=== PATIENT | female | born 1975 | race Caucasian/White ===

== ENCOUNTER → 2021-02-05 09:55 | Outpatient (CLI) | payer OTHER, SELFPAY ==
--- NOTE | 2021-02-05 10:00 | DI.US.S_ITS ---
PROCEDURE: US PELVIC COMPLETE INDICATIONS: MENORRHAGIA TECHNIQUE: Real-time scanning was performed of the pelvic organs, with image documentation. Additional endovaginal scanning was necessary due to incomplete visualization of the adnexal and endometrial structures by transabdominal scanning. COMPARISON: [facility], US, PELVIS SONO TRANSVAGINAL (PNL), 09/23/2011, 14:41. FINDINGS: Uterus: Uterus is normal in size at 5.5 x 4.4 x 7.9 cm. The endometrium measures 8.3 mm in combined thickness. Ovaries: Normal bilaterally measuring 3.3 x 2.1 x 2.0 cm on the right and 3.0 x 2.9 x 1.8 cm on the left. Other: No pathologic free abdominal or pelvic fluid. Mildly prominent asymmetric right greater than left pelvic veins. This is a nonspecific finding. IMPRESSION: Normal appearing ovaries and uterus. Asymmetric mild prominence of right-sided pelvic veins when compared to those on the left. No suspicion for presence of ovarian torsion. Dictated by: Ceasar Mayen M.D. on 02/05/2021 at 12:44 Approved by: Ceasar Mayen M.D. on 02/05/2021 at 12:47
== END ==
PROVIDERS: Referring Provider Obstetrics & Gynecology; Visit Provider Obstetrics & Gynecology
DX: N92.0 Excessive and frequent menstruation with regular cycle (principal)
CPT/HCPCS: 76830; 76856

== ENCOUNTER 2023-10-09 07:37 | Day surgery (SDC) | payer OTHER, SELFPAY ==
[2023-09-29 14:26] VITALS: BMI 31.4
[2023-10-09] VITALS (20 sets, daily range): BP systolic 98–124; BP diastolic 56–85; PULSE 58–88; RESP 12–17; TEMP 36.3–37.2; O2SAT 96–100; BMI 31.4; BMI 33.0
--- NOTE | 2023-10-09 | PATH_ITS ---
[facility] Accession Number: [id number] No. of containers..01 Tissue . 01 Material submitted: . uterus - UTERUS,CERVIX,BILATERAL FALLOPIAN TUBES . 01 Diagnosis: UTERUS, CERVIX, AND BILATERAL FALLOPIAN TUBES, HYSTERECTOMY AND BILATERAL SALPINGECTDOMY: Cervix with no significant pathologic alterations; no dysplasia or malignancy. Secretory endometrium; no endometrioid intraepithelial neoplasia and no malignancy. Adenomyosis. Complete cross sections of fimbriated bilateral fallopian tubes with benign paratubal cysts. [facility] 10/14/20234 Local . 01 Electronically signed: . Brandy Velasquez MD, Pathologist NPI- [id number] . 01 Gross description: . Received in formalin with two identifiers and uterus, cervix, bilateral fallopian tubes, is an intact uterus (136 grams, 10.2 cm superior to inferior, 6.3 cm medial to lateral, 4.4 cm anterior to posterior), with attached cervix (4.0 x 3.1 cm), attached left fallopian tube (6.9 x 0.6 cm), and detached right fallopian tube (6.1 x 0.9 cm), with no additional adnexa. . The ectocervix is pink-dunbar, smooth, and glistening with a patulous os measuring 0.9 cm in diameter. The serosa is dunbar and smooth with no evidence of hemorrhage or adhesion identified. The anterior paracervical margin is inked blue while the posterior paracervical margin is inked black. . The endocervical canal has dunbar herringbone mucosa and measures 3.0 cm in length with cysts with clear gelatinous material measuring up to 0.4 cm in greatest dimension. The endometrial cavity measures 3.7 cm from cornu to cornu, and 5.1 cm in length with pink-dunbar lush endometrium that averages 0.3 cm thick with no lesions identified. The myometrium is dunbar and trabecular measuring up to 1.6 cm in maximum thickness with no lesions identified. . Both tubes have violaceous smooth serosa and the left tube has a pedunculated cyst measuring 1.6 cm in greatest dimension filled with dunbar serous fluid. The lumen are stellate and unremarkable. . Box Toe Maker sections are submitted as follows: A1: Anterior cervix. A2: Posterior cervix. A3: Anterior full thickness section. A4: Posterior full thickness section. A5: Left fallopian tube to include one-half of bisected fimbriae and cross-sections. A6: Right fallpian tube to include one-half of bisected fimbriae and cross-sections. ([id number]) /NATHALY 10/10/2023 2359 Local . 01 Pathologist provided ICD-10: N80.00, N92.0 . 01 CPT . 665250 Specimen Comment: A courtesy copy of this report has been sent to [phone] Performed at: 01 [facility] [address] [place] [address], [place], [place] [id number] MD Jabari Stovall MD Phone: [phone]
[2023-10-09] MEDS: LACTATED RINGERS 1,000 ML 42 ML IV ×2 (08:07→10:25)
--- NOTE | 2023-10-09 08:53 | PM.PREOP ---
Pre-operative Note COVID-19 COVID-19 status: Not tested Interval Note History & Physical reviewed/Exam performed by Physician: Yes Changes to H&P: No
[2023-10-09] MEDS: ACETAMINOPHEN 325 MG TABLET 975 MG PO (09:16)
[2023-10-09] MEDS: SCOPOLAMINE 1 PATCH TOP (09:16)
[2023-10-09] MEDS: CEFAZOLIN 2 GM/100 ML PREMIX 100 ML IV (09:29)
--- NOTE | 2023-10-09 09:54 | SUR.OPER ---
Lithotomy on padded OR bed. [place] Pad Positioner under torso. Head on pillow, arms padded and tucked at sides. Legs secured in padded yellow fins stirrups.
[2023-10-09] MEDS: BUPIVACAINE 0.5% (PF) 30 ML, EPINEPHrine 0.15 MG INJ (10:11)
[2023-10-09] MEDS: ROPIVACAINE 0.2% PF 2 MG/ML 10ML AMP 20 ML INJ (10:54)
--- NOTE | 2023-10-09 11:40 | PM.GYNOP.1 ---
Operative Date/Time/Diagnoses Date of procedure: 10/09/23 Time of procedure: 09:30 Pre-op diagnosis: Menorrhagia Severe dysmenorrhea Post-op diagnosis: other (Same as above; minimal pelvic endometriosis) Procedure & Clinicians Procedure: Procedures Operation Date: 10/09/23 09:15 Actual Procedure Side Surgeon p Laparoscopic Total Hysterectomy with bilateral salpingectomy Devin Carter MD Indications: Socorro returned in July 2023 for follow-up of her longstanding menorrhagia with severe dysmenorrhea. In the 2-1/2 years since I last saw her, her periods have only worsened insofar as menstrual flow, and severity of pain. She has several days of cramping prior to the onset of each menses which last 7 days and are associated with passage of large clots and incapacitating dysmenorrhea. Despite use of maxi pads and tampons, the patient frequently has overflows especially at night and at least 2 or 3 days out of every month she is virtually incapacitated by pain and bleeding. Following each menses, she has several days of residual pain and cramping in the pelvis. Patient's last menstrual period actually began earlier today and she expects the severe bleeding to start in the next few hours. Patient had a LEEP procedure about 4 years ago and Paps since that time have been negative but she does not recall when she had her last Pap performed. She has never had endometrial sampling performed. Her most recent pelvic ultrasound performed on 12/04/2022 shows the uterus to be anteverted and normal in size measuring 8.7 cm x 4.3 cm x 5.7 cm. The myometrium is described as homogeneous. The endometrial stripe measures 8 mm in combined thickness. The right ovary measures 2.7 x 1.8 x 2.0 cm with a calculated ovarian volume of 4.9 cc. The left ovary measures 3.3 x 1.9 x 2.6 cm with a calculated ovarian volume of 8.4 cc. Both ovaries have normal sonographic appearance. No adnexal masses or pathologic free abdominal/pelvic fluid are noted. Subsequent to her evaluation in July 2023, the patient underwent Pap and endometrial sampling which again showed atypical glandular cells with negative HPV and negative endometrial biopsy results. We discussed potential causes and methods of evaluation/treatment for her severe menorrhagia and severe dysmenorrhea. While she is open to insertion of a Mirena IUD or performance of endometrial ablation, she is very concerned that neither can guarantee her that her symptoms of heavy bleeding with flooding as well as her incapacitating dysmenorrhea. Instead, the patient would like to proceed to hysterectomy with ovarian preservation and I support her decision. She presents now for her scheduled surgery. Surgeon: Devin Carter Energy Conservation Representative: María Rivas Anesthesia Type: General Operative Notes Findings: Uterus is normal in size and shape. Fallopian tubes and ovaries both appeared normal. There are 3 or 4 superficial endometrial implants immediately adjacent to the insertion of the uterosacral ligament at posterior aspect of the cervix. These were destroyed judicious use bipolar current. There were no other abnormalities in the posterior cul-de-sac. The left ovary had an involuting corpus luteum and the right ovary as a small dominant follicle noted but no abnormalities in the right adnexa seen. The remainder of the abdomen pelvis were normal to laparoscopic inspection. Closure Type: primary Specimen(s): left tube, right tube and uterus Applied: catheter Estimated blood loss (mL): 200 Blood products transfused: none Procedure in detail: With the patient in modified dorsal lithotomy position preparations were made by prepping and draping the patient in usual manner for vaginal surgery and insertion of Carmona catheter. A pre-surgical time-out was then taken in accordance with [facility] policy. A bivalve speculum was then placed in the vagina and the cervix visualized. The anterior lip of the cervix was then grasped with a single-tooth tenaculum. A PDS suture was placed through the lip cervix and through the VC are cup. The uterus was sounded to 8 cm, the endocervical canal dilated slightly, and a VCare uterine manipulator with a large colpotomy cup was placed. The umbilicus was then infiltrated with 0.5% Marcaine with epinephrine. A 1 cm umbilical incision was made transversely and a Veress needle was used to insufflate the abdominal cavity with carbon dioxide. Once the abdomen was appropriately insufflated, a 5 mm trocar and sleeve were then placed through the umbilical incision. The scope was placed through the trocar and the initial assessment of the intra-abdominal contents carried out. A 2nd and 3rd 5 mm port was then placed 1st in the right mid quadrant from then the left mid quadrant by infiltration of the skin and subcutaneous tissues, a 1 cm transverse incision and insertion of the 5 mm bladeless port. Using a 3 puncture technique, the abdomen and pelvis were inspected laparoscopy and photographically documented. Uterus is mobilized with the VCare manipulator and attention turned to the left adnexa. The distal tube was then grasped and the fimbria varicose divided after coagulation with the PowerSeal device. The dissection was then carried out toward the cornua and the fallopian tube amputated. The tube was removed through a 5 mm port and dissection was then carried down using the PowerSeal device so as to divide the utero-ovarian ligament and the round ligament with blunt and sharp dissection of the broad down to the level of the uterine artery. The uterine artery was then skeletonized after development of a bladder flap, coagulated, and divided. Once hemostasis was assured on the left side attention was turned to the right and the tube, utero-ovarian ligament, round ligament, and broad ligament were dissected in a fashion exactly the same as it had been on the left. The right uterine artery was then visualized after skeletonization and coagulated and divided. The uterus was seen to pamela after coagulation of both your arteries and the cup was identified through the vaginal muscularis at its insertion with the body of the cervix. Circumferential excision of the vaginal cup was accomplished without difficulty using monopolar current and the uterus mobilized. The uterus was then removed through the vagina and the vaginal cuff closed [id number] with a series of 0 Vicryl [id number] stitches. Hemostasis was excellent, the abdomen was re-insufflated, and the pelvis inspected laparoscopically. The pelvis was inspected for any abnormality or bleeding, and the ureters were each seen to be peristalsing freely. With complete hemostasis assured, the pneumoperitoneum was vented and the ports removed. All of the 5 mm ports were then closed with 4-0 Monocryl on the skin using inverted interrupted sutures. Skin glue was placed and after the glue was dried, an appropriate dressing was applied. The case was then terminated, the patient awakened, and then transferred to PACU after having tolerated the procedure well. Complications: none Post-operative Condition: stable Disposition: PACU Plan for aftercare: Recovery in ambulatory surgery in discharge home later today if pain is under control and she is tolerating oral intake well.
[2023-10-09] MEDS: HYDROMORPHONE 1 MG INJ IV ×5 (11:48→17:34)
[2023-10-09] MEDS: BENZOCAINE/MENTHOL 1 LOZ PKT 1 EACH PO (11:50)
[2023-10-09] MEDS: OXYCODONE IR 5 MG TABLET PO ×2 (12:08→15:48)
[2023-10-09] MEDS: ACETAMINOPHEN 325 MG TABLET 650 MG PO ×2 (13:44→17:34)
[2023-10-09] MEDS: LACTATED RINGERS 1,000 ML 100 ML IV ×2 (13:45→22:55)
[2023-10-09] MEDS: ONDANSETRON 4 MG/2 ML INJ IV ×2 (17:33→20:11)
[2023-10-09] MEDS: KETOROLAC 30 MG/ML VIAL IV (20:10)
[2023-10-10] MEDS: ACETAMINOPHEN 325 MG TABLET 650 MG PO ×2 (00:23→05:10)
[2023-10-10] MEDS: KETOROLAC 30 MG/ML VIAL IV ×2 (03:29→08:21)
[2023-10-10 04:51] LABS: Add Manual Diff / Slide Review NO; Basophils Absolute Auto 100 /uL (0-100); Basophils Percent Auto 0.4 % (0-2); Eosinophils Absolute Auto 100 /uL (0-450); Eosinophils Percent Auto 0.4 % (2-4); Hematocrit 36.2 % (36-46); Hemoglobin 12.3 g/dL (12.0-16.0); Lymphocytes Absolute Auto 1800 /uL (1100-4500); Lymphocytes Percent Auto 12.4 % (25-40); Mean Corpuscular HGB Conc 33.9 % (30-36); Mean Corpuscular Hemoglobin 29.2 PG (26-34); Mean Corpuscular Volume 86.3 fL (80-100); Monocytes Absolute Auto 900 /uL (0-900); Monocytes Percent Auto 6.1 % (3-14); Neutrophils Absolute Auto 11400 /uL (1500-7000); Neutrophils Percent Auto 80.7 % (50-75); Platelet Count 308 X10^3/uL (150-400); Red Cell Distribution Width 12.8 % (11.6-14.8); White Blood Cell Count 14.1 X10^3/uL (4.5-11.0)
[2023-10-10] MEDS: OXYCODONE IR 5 MG TABLET PO (05:10)
[2023-10-10] MEDS: ONDANSETRON 4 MG/2 ML INJ IV (08:21)
[2023-10-10] MEDS: buPROPion XL 150 MG TAB 300 MG PO (08:21)
--- NOTE | 2023-10-10 09:30 | PM.DS.1 ---
History of Present Illness History of Present Illness Date Patient Seen: 10/10/23 Time Patient Seen: 09:30 Chief complaint: Menorrhagia, severe dysmenorrhea Narrative: Socorro returned in July 2023 for follow-up of her longstanding menorrhagia with severe dysmenorrhea. In the 2-1/2 years since I last saw her, her periods have only worsened insofar as menstrual flow, and severity of pain. She has several days of cramping prior to the onset of each menses which last 7 days and are associated with passage of large clots and incapacitating dysmenorrhea. Despite use of maxi pads and tampons, the patient frequently has overflows especially at night and at least 2 or 3 days out of every month she is virtually incapacitated by pain and bleeding. Following each menses, she has several days of residual pain and cramping in the pelvis. Patient's last menstrual period actually began earlier today and she expects the severe bleeding to start in the next few hours. Patient had a LEEP procedure about 4 years ago and Paps since that time have been negative but she does not recall when she had her last Pap performed. She has never had endometrial sampling performed. Her most recent pelvic ultrasound performed on 12/04/2022 shows the uterus to be anteverted and normal in size measuring 8.7 cm x 4.3 cm x 5.7 cm. The myometrium is described as homogeneous. The endometrial stripe measures 8 mm in combined thickness. The right ovary measures 2.7 x 1.8 x 2.0 cm with a calculated ovarian volume of 4.9 cc. The left ovary measures 3.3 x 1.9 x 2.6 cm with a calculated ovarian volume of 8.4 cc. Both ovaries have normal sonographic appearance. No adnexal masses or pathologic free abdominal/pelvic fluid are noted. Subsequent to her evaluation in July 2023, the patient underwent Pap and endometrial sampling which again showed atypical glandular cells with negative HPV and negative endometrial biopsy results. We discussed potential causes and methods of evaluation/treatment for her severe menorrhagia and severe dysmenorrhea. While she is open to insertion of a Mirena IUD or performance of endometrial ablation, she is very concerned that neither can guarantee her that her symptoms of heavy bleeding with flooding as well as her incapacitating dysmenorrhea. Instead, the patient would like to proceed to hysterectomy with ovarian preservation and I support her decision. She presents now for her scheduled surgery. Discharge Providers Provider Date of admission: 10/09/2023 Discharge Date: 10/10/23 Primary care physician: Reji Monroe MD Discharge provider: Devin Carter MD Summary Hospital Course Discharge Diagnosis: Intractable menorrhagia Severe dysmenorrhea Minimal pelvic peritoneal endometriosis Status post total laparoscopic hysterectomy with bilateral salpingectomy and fulguration of endometrial implants Hospital Course: On the morning of 10/09/2023, the patient was admitted for total laparoscopic hysterectomy with bilateral salpingectomy. Full details of that uneventful procedure are well summarized on my operative note of that date. Following surgery the patient has done extremely well with prompt return of bowel and bladder function, she is ambulating independently, tolerating regular diet, and her pain is well controlled with oral pain medications. She will be discharged at this time to home in an afebrile normotensive condition after counseling regarding precautionary symptoms, limitations of activity, medications, and plans for follow-up which will be in 2 weeks. Discharge medication will include resumption of naproxen and bupropion but discontinuation of tranexamic acid as her menorrhagia has been addressed with hysterectomy. In addition she will be discharged with oxycodone 5 mg every 4-6 hours as needed for pain, dispense 20 with no refills, and Cipro 500 mg p.o. b.i.d. x5 days for UTI prophylaxis following catheterization. Status at Discharge Cognitive/behavioral status at discharge: oriented Functional status at discharge: independent ambulation Overall status at discharge: patient is progressing back to baseline Time Spent with Patient Time spent: Less than 30 minutes Exam Vital Signs (past 8 hours): Oxygen Delivery Method Room Air Oxygen Flow Rate 0 Const General: cooperative and comfortable Nutritional Appearance: average body habitus Orientation: alert and oriented x3 HENMT Head: normal to inspection, atraumatic and abrasion Ears: hearing grossly normal bilaterally Face and sinus: face symmetric Eyes General: appearance normal, both eyes and all related structures Conjunctivae: conjunctivae normal Sclera: sclerae normal EOM: EOM intact bilaterally Neck Neck: normal visual inspection Resp Effort & Inspection: normal respiratory effort and able to speak in complete sentences Auscultation: clear to auscultation bilaterally Cardio Rate: regular rate Rhythm: regular rhythm Heart Sounds: S1 normal, S2 normal and no murmurs GI Inspection: normal to inspection and incision (Surgical dressings clean and dry) Palpation: soft, no hepatosplenomegaly and tender (Mild, diffuse postsurgical tenderness) Auscultation: hypoactive bowel sounds External Female Exam: other (No significant bleeding noted) Extrem General: no calf tenderness Psych Appearance: grossly normal Mental Status: mental status grossly normal Speech and Movement: speech and movement normal Mood: congruent mood Affect: normal affect Attitude: cooperative Thought Process: normal Thought Content: normal Judgment: judgment good Objective Labs 10/10/23 04:27 Labs: Laboratory Results - last 24 hr 10/10/23 04:27 WBC 14.1 H RBC 4.20 Hgb 12.3 Hct 36.2 MCV 86.3 MCH 29.2 MCHC 33.9 RDW 12.8 Plt Count 308 Neut % (Auto) 80.7 H Lymph % (Auto) 12.4 L [place] % (Auto) 6.1 Eos % (Auto) 0.4 L Baso % (Auto) 0.4 Neut # (Auto) 88972 H Lymph # (Auto) 1800 [place] # (Auto) 900 Eos # (Auto) 100 Baso # (Auto) 100 PFSH Medical History (Updated 09/29/23 @ 14:34 by Alexia Crawford RN) Vertigo PMDD (premenstrual dysphoric disorder) Mood swings Menorrhagia with regular cycle Surgical History (Updated 09/29/23 @ 14:34 by Alexia Crawford RN) Hx of colonoscopy History of surgery Social History household members: spouse Smoking Status: Former smoker alcohol intake: current Discharge Assessment & Plan Assessment and Plan Assessment: Intractable menorrhagia Severe dysmenorrhea Minimal pelvic peritoneal endometriosis Status post total laparoscopic hysterectomy with bilateral salpingectomy and fulguration of endometrial implants Plan of Treatment: Routine postoperative care with follow-up planned for 2 weeks after her surgery Discharge Plan Discharge Plan Patient Disposition: Home Provider Discharge Comment: Please review the written instructions you received when were discharged from appointment scheduled weeks and I look forward to seeing you then. If however in the any issues concerns questions please through the office phone at [phone], or via the patient portal. Discharge orders & Medications Discharge Orders: Discharge (Order); Ordered 10/10/23 Ordered By: Devin Carter Prescriptions: New oxycodone 5 mg Tablet 5 mg PO Q4HR PRN (Reason: Pain, Moderate (4-6)) Qty: 20 0RF ciprofloxacin HCl [Cipro] 500 mg tablet 500 mg PO BID 5 Days Qty: 10 0RF Continued bupropion HCl 300 mg tablet extended release 24 hr 300 mg PO QAM naproxen 500 mg tablet 500 mg PO Q8H PRN (Reason: pain) Qty: 30 12RF Rx Instructions: For best effect, start medication 1-2 days prior to expected onset of period Discontinued tranexamic acid 650 mg tablet 1,300 mg PO TID Qty: 30 12RF Rx Instructions: Start medication with the start of each period Medication counseling provided by Pharmacist: No Follow up/Referrals: Reji Monroe MD [Primary Care Provider] - Devin Carter MD [Physician] - Diet/Activity/Treatments Diet: Diet as Tolerated Activity: As tolerated Other treatments: Vbdr-ojv-rqmxwab Tylenol and/or ibuprofen may be used additional pain relief. Wcus-mxn-zlrdphd stool softeners and/or MiraLax may be used as needed for constipation. Skin/Wound/Dressing Care Report to your healthcare provider any signs of infection, such as:: chills, fever, increased pain, unusual drainage and unusual redness Dressing: Dressings should be removed morning 10/11/2023 Visit Report/Discharge Packet Instructions: DI for Hysterectomy, DI for Laparoscopy, DI for Prescription Opioid Use, Ciprofloxacin Print Language: Welsh Discharge Data Primary Care Provider: Reji Monroe Attending Provider: Devin Carter Quality VTE Deep Vein Thrombosis/Pulmonary Embolism Present on Admission: No
[2023-10-10] MEDS: HYDROMORPHONE 1 MG INJ IV (10:12)
--- NOTE | 2023-10-10 10:25 | CM.DANOTE ---
Initial DCP Assessment Visit Note Reviewed EMR and team rounds for status updates. Met with pt and spouse at bedside to introduce self and role, pt was found to be alert/oriented, and dressed in preparation for home discharge. Her spouse will be transporting her home. No DCP needs were identified at this time for community support. She will plan to f/u postoperatively with Dr. Carter. Payor: [facility] Attending: Dr. Devin Carter Pt is a 47 year-old F post-op day 1 from a laparoscropic total hysterectomy and bilateral salpingectomy. Pt has a PMH of excessive and frequent menstruation which has worsened over the last 2-years. She had shared that her menstruation periods are painful, with cramping and passage of large clots, which for at least 3-days out of the month leaves her incapacitated with pain and bleeding. She is doing well postoperatively, no further DCP needs per pt/spouse. Discharge Planning/Care Management CM Discharge Assessment Start: 10/10/23 10:23 Freq: Status: Active Protocol: Document 10/10/23 10:24 DPL (Rec: 10/10/23 10:25 DPL [id number]) Discharge Planning Assessment Assigned Paint Pourer DANN Coreas Advance Directives? No History Provided By Patient,Medical Record Has Patient been admitted in last 30 No days? Prior Living Arrangements House Household Members spouse Type of transporation used prior to Drives own vehicle admit Independent with ADL's Yes Is patient alert and oriented? Yes Barriers to Discharge No Discharge Plan Home Referrals Initiated None needed Whiteboard Updated in Patient Room with Yes name and ext. # of Paint Pourer Review Status In Process Please Provide Date Initial DC 10/10/23 Assessment Was Performed Pre-Anesthesia Assessment Start: 09/29/23 14:26 Freq: Status: Active Protocol: Document 09/29/23 14:26 CAB (Rec: 09/29/23 14:34 CAB [id number]) Pre-Anesthesia Assessment Patient Information Reviewed Via Chart Review Primary Care Provider Reji Monroe Seen Specialist in Last 12 Months Yes Specialist Seen Crusher Primary Language Wolof Customs Consultant Required No Height 165.1 cm Weight 85.729 kg Body Mass Index (BMI) 31.4 Barriers to Learning None Hx Anesthesia Reactions No Anesthesia Review Requested No Behavioral Health Rn No Smoking Status Former smoker how long ago did patient quit smoking 2007 Pain Present Pain Reported History of Falling (Recent or History of No ) Patient is completely paralyzed or No completely immobile Mental Status Oriented to own ability Hx Sleep Apnea No Currently Taking a Beta Malissa No Anti-Coagulant Therapy No Cardiac Testing No Hx Pacemaker/ICD No Pacemaker Rep Required? No Cardiac Clearance Received No Urinary Catheter Present No Hx Urinary Self Catheterization No Diabetes No Patient No Lactating No Marital Status Lives With spouse Patient Discharge Plan Description Return Home
== END 2023-10-10 10:30 | disposition home or self-care (01) ==
LOC: OR 07:38 → AC 07:40
PROVIDERS: PCP Family Medicine; Referring Provider Obstetrics & Gynecology; Visit Provider Obstetrics & Gynecology
PROC: 0UT94ZZ Resection of Uterus, Percutaneous Endoscopic Approach (ICD-10-PCS; CPT 58571; principal; 2023-10-09 09:15)
DX: N92.0 Excessive and frequent menstruation with regular cycle (principal); N94.6 Dysmenorrhea, unspecified; N83.12 Corpus luteum cyst of left ovary; N80.03 Adenomyosis of the uterus; N83.8 Other noninflammatory disorders of ovary, fallopian tube and broad ligament
CPT/HCPCS: 58571; 36415; 85025; J0171; J0690; J1100; J1170; J1885; J2250; J2405; J2704; J2795; J3010

== ENCOUNTER → 2024-01-08 18:17 | Outpatient (CLI) | payer OTHER, SELFPAY ==
[2023-10-09 13:09] VITALS: BMI 33.0
--- NOTE | 2024-01-08 18:18 | DI.MRI.S_ITS ---
PROCEDURE: MR PELVIS WO/W CON INDICATIONS: Pelvic pain/dyspareunia post-hysterectomy TECHNIQUE: Coronal HASTE, sagittal breath-hold T2 FSE; axial T1 FSE with and without fat saturation through the pelvis. Optional long- and short-axis uterine nonbreath-hold T2 FSE through the uterus. Sagittal or axial dynamic VIBE during administration of contrast. Post-contrast axial or coronal VIBE/2-D FLASH with fat saturation from the iliac crests to the symphysis. Optional diffusion weighted imaging and ADC may be performed. COMPARISON: [facility], US, US PELVIC COMPLETE WITH TRANSVAGINAL, 10/13/2022, 8:13. FINDINGS: Image quality: Excellent. Uterus: Status post hysterectomy. Vaginal cuff is unremarkable. Adnexa: Both ovaries are normal in size, without suspicious cystic or solid lesions. Urinary system: Bladder wall is normal in thickness. Distal ureters are non distended. Urethra appears normal in morphology. Nodes and vessels: No pelvic or inguinal adenopathy by size criteria. Iliac vessels are normal in size. Bowel and peritoneum: No pathologic free pelvic fluid. Inferior colon and small bowel loops are normal in caliber. Soft tissues: No inguinal hernias. No findings of pelvic floor incompetence in the absence of provocation. Bones: Marrow demonstrates normal overall signal. IMPRESSION: Postsurgical changes from hysterectomy. No acute inflammatory changes or fluid collection is seen in the pelvis. No definite source for pelvic pain identified. Approved by: Scooby Nguyễn M.D. on 01/08/2024 at 20:03
== END ==
PROVIDERS: PCP Family Medicine; Referring Provider Obstetrics & Gynecology; Visit Provider Obstetrics & Gynecology
DX: R10.2 Pelvic and perineal pain (principal); Z90.710 Acquired absence of both cervix and uterus
CPT/HCPCS: 72197; A9579

== ENCOUNTER 2024-01-15 12:49 | Day surgery (SDC) | payer OTHER, SELFPAY ==
[2023-10-09 13:09] VITALS: BMI 33.0
[2024-01-13 08:03] VITALS: BMI 28.9
[2024-01-15] VITALS (11 sets, daily range): BP systolic 109–135; BP diastolic 52–85; PULSE 62–80; RESP 14–25; TEMP 36.2–36.9; O2SAT 96–100; BMI 28.9
--- NOTE | 2024-01-15 | PATH_ITS ---
[facility] Accession Number: [id number] No. of containers..01 Tissue . 01 Material submitted: . PERITONEAL - PERITONEAL . 01 Diagnosis: PERITONEUM, BIOPSY: Small fragment of fibroadipose tissue with focal mild chronic inflammation. Negative for atypia or malignancy. Negative for endometriosis, see comment. MRV 01/19/2024 1536 Local . 01 Comment: Multiple deeper levels have been examined. Endometrial-type glands or stroma are not seen. . No malignancy is identified. . Clinical and radiologic correlation is recommended. . 01 Electronically signed: . Hector Noriega MD, Pathologist NPI- [id number] . 01 Gross description: . Received in formalin with two patient identifiers and peritoneal biopsy, is a dunbar to yellow fragment measuring 0.5 x 0.3 x 0.4 cm with one edge inked blue and the opposite edge surface inked yellow. Bisected and submitted in cassette A1. ([id number]) ([id number]) /NATHALY 01/19/2024 1444 Local . 01 Pathologist provided ICD-10: R10.2, Z90.710 . 01 CPT . 621522 Specimen Comment: A courtesy copy of this report has been sent to [phone] Performed at: [address] [facility] [address], [place], [place] [id number] MD Jabari Stovall MD Phone: [phone]
--- NOTE | 2024-01-15 13:12 | SUR.OPER ---
Lithotomy on padded OR bed, head on pillow. bilateral arms padded and tucked. Legs secured in padded yellow fins stirrups.
[2024-01-15] MEDS: LACTATED RINGERS 1,000 ML 42 ML IV ×2 (13:32→16:05)
--- NOTE | 2024-01-15 13:52 | P.HP_ITS ---
History of Present Illness History of Present Illness Date Patient Seen: 01/15/24 Time Patient Seen: 13:53 Date of Onset of Symptoms: 01/06/24 Chief complaint: PROVIDER SERVICE REPRESENTATIVE Narrative: This 48-year-old female underwent uncomplicated hysterectomy and subsequently developed what she reports as was not infection and then pelvic pain particularly with intercourse which has now progressed to where it is a more constant pain. She has been taking to the operating room by Dr. Carter for exploratory laparoscopy and treatments to alleviate her pain. Dr. Carter has requested that I place lighted ureteral stents to aid in the location of the ureter so that they might not be injured during the procedure. The procedure, risks, alternatives were discussed with the patient questions were answered and she wishes to proceed. Risks to include but not limited to bleeding, infection, injury to surrounding structures, ureteral perforation, need for 1st of the surgery, unexpected in unintended consequences in sequelae, anesthetic complications, need for Carmona catheter, postoperative dysuria frequency urgency which should be short-lived. Patient voices understanding and acceptance of risks and wishes me to proceed. [facility] Medical History (Updated 01/06/24 @ 16:01 by Devin Carter MD) Vertigo PMDD (premenstrual dysphoric disorder) Mood swings Surgical History (Updated 01/13/24 @ 08:07 by Alexia Crawford RN) History of hysterectomy (10/09/23) Hx of colonoscopy History of surgery Social History household members: spouse Smoking Status: Former smoker alcohol intake: current Meds Home Medications and Allergies Home Medications Medication Instructions Recorded Confirmed Type bupropion HCl 300 mg 24 hr tablet, 300 mg PO QAM 08/18/23 01/15/24 History extended release naproxen 500 mg tablet 500 mg PO Q8H PRN pain #30 tabs 08/18/23 01/15/24 Rx semaglutide 0.25 mg or 0.5 mg (2 0.25 mg SUBCUT QWEEK 01/06/24 01/15/24 History mg/3 mL) subcutaneous pen injector Allergies Allergy/AdvReac Type Severity Reaction Status Date / Time Sulfa (Sulfonamide Allergy Intermediate Nausea Verified 01/15/24 13:36 Antibiotics) Exam Vital Signs (past 8 hours): - 01/15/24 13:20 Temperature 98.5 F Pulse Rate 70 Respiratory Rate 18 Blood Pressure 109/76 Pulse Oximetry 100 Oxygen Delivery Method Room Air Oxygen Delivery Method Room Air Narrative Exam Narrative: General: This is an awake, alert, oriented female lying on a gurney who appears in no substantial distress at this point. Lungs: Clear full and equal Cardiovascular exam: Regular rate and rhythm without murmur Abdominal exam: Soft, nontender, without palpable mass or hepatosplenomegaly. Genitourinary exam deferred to cystoscopy. Assessment & Plan Assessment and plan (1) Pelvic pain in female: Status: Acute (2) Vaginal cuff cellulitis: Status: Suspected Plan Assessment and plan: 1. Pelvic pain in female. Dr. Carter plans laparoscopic investigation has requested lighted ureteral stents which will be placed via cystoscopy and removed at the end of the procedure. We will also place a Carmona catheter to facilitate the stent staying in place. 2. Vaginal cuff cellulitis 3. Significant pain during intercourse Time-Based Coding :: [TOTAL MINUTES] spent with patient and on the chart (including review of chart, obtaining history, exam, reviewing outside data, placing orders, documenting exam and treatment plan, and counseling patient) on [DATE].
--- NOTE | 2024-01-15 13:58 | PM.PREOP ---
Pre-operative Note COVID-19 COVID-19 status: Not tested Interval Note History & Physical reviewed/Exam performed by Physician: Yes Changes to H&P: No
--- NOTE | 2024-01-15 13:59 | PM.PREOP ---
Pre-operative Note COVID-19 COVID-19 status: Not tested Interval Note History & Physical reviewed/Exam performed by Physician: Yes Changes to H&P: No
[2024-01-15] MEDS: CEFAZOLIN 2 GM/100 ML PREMIX 100 ML IV (14:11)
[2024-01-15] MEDS: iopamidoL 30 ML VIAL INJ (14:26)
--- NOTE | 2024-01-15 14:50 | PM.OP.1 ---
Procedure & Clinicians Procedure: Cystoscopy with right retrograde pyelogram and bilateral ureteral catheter placement. Carmona catheter placement Same procedure as scheduled: Yes Indications: This is a 48-year-old female who is admitted for gynecologic diagnostic laparoscopy. Her instrumentation supervisor has requested lighted ureteral catheters to aid in the identification and protection of the ureters. Surgeon: Jamal Camargo Click Yes if Unassisted: Yes Anesthesia Type: General Operative Notes Findings: External genitalia normal, vaginal mucosa arpan, l urethral meatus normal, the urethra is normal along its length with normal mucosa. The ureteral orifices in normal position with clear efflux. The bladder mucosa is normal there are no extrinsic mass intrusion into the bladder the outlined of the bladder and contour is normal no inflammatory changes or other abnormalities were noted. At the right retrograde pyelogram which was performed because of seemingly increased resistance in the right ureter this appeared normal with a nondilated collecting system no hydronephrosis no filling defects. The catheters were confirmed to be in good position by fluoroscopy. One in the right collecting system 1 in the left collecting system. The 16 [place] catheter was left in place with the ureteral catheters taped to it. Closure Type: not applicable Specimen(s): none sent Prosthetic devices, grafts, tissues, transplants, or devices: Bilateral lighted ureteral catheters right and left 16 [place] 5 cc Carmona catheter 10 cc in the balloon with the ureteral catheters taped to the catheter. Blood products transfused: none Procedure in detail: Procedure in detail: After informed consent was obtained, the patient was identified brought the operating room where she is placed in supine position on table and anesthesia was induced to maintain. After ensuring an adequate level of anesthesia the patient was transitioned to the lithotomy position where she was prepped, draped and prepared for Transurethral procedure. After prepping, draping, administration of antibiotics, time-out and ensuring an adequate level of anesthesia 22 Kittitian cystoscope was passed through the urethra into the bladder where cystoscopy performed with the ureteral orifices identified the ureteral catheter for the left side was passed up into the collecting system with minimal resistance. On the right side has was passed there was resistance attempt with the wire removed revealed resulted in no decrease in resistance therefore the wire was backed out and a retrograde pyelogram was performed which revealed normal anatomy. This point the catheter had the wire passed up through it and up into the collecting system under fluoroscopic visualization. The catheter was then passed into the renal pelvis and the wire removed. The ureteral catheters were left in place the scope was backed out and the catheter was left in place. The fiberoptic fibers were then passed up the right and left ureteral catheters and left in place. The Carmona catheter was then passed along the catheters through the urethra of the balloon filled with 10 cc of sterile water. The drapes were removed as this happened the adhesive caught the catheter isn't back to mount a bit this was stopped the catheters were once again advanced the drapes removed fluoroscopic visualization was once again obtained have confirmed that the catheters were in appropriate position at this point the catheters were taped to the Carmona to secure them in place. With this done the patient went onto procedure via Dr. Carter. Dr. Carter will remove the Carmona in the catheters at the end of the procedure having been instructed how to do so they should just simply slight out. Disposition will be per Dr. Carter and his procedure will be dictated under separate cover. Complications: none Post-operative Condition: stable Disposition: other (Patient went onto diagnostic laparoscopy per Dr. Carter further disposition will be made my him.)
[2024-01-15] MEDS: BUPIVACAINE 0.5% (PF) 30 ML, EPINEPHrine 0.15 MG INJ (14:52)
[2024-01-15] MEDS: OXYCODONE IR 5 MG TABLET PO ×2 (16:00→16:28)
[2024-01-15] MEDS: HYDROMORPHONE 1 MG INJ IV ×3 (16:00→16:15)
[2024-01-15] MEDS: hydrOXYzine 50 MG/ML INJ 25 MG IM (16:05)
[2024-01-15] MEDS: ONDANSETRON 4 MG/2 ML INJ IV (16:05)
[2024-01-15] MEDS: fentaNYL 100 MCG/2 ML INJ IV ×2 (16:08→16:13)
--- NOTE | 2024-01-15 16:21 | PM.GYNOP.1 ---
Operative Date/Time/Diagnoses Date of procedure: 01/15/24 Time of procedure: 14:30 Pre-op diagnosis: Pelvic pain following hysterectomy Post-op diagnosis: other (ANGELES; extensive postsurgical pelvic adhesions) Procedure & Clinicians Procedure: Procedures Operation Date: 01/15/24 14:00 Actual Procedure Side Surgeon p Laparoscopy, Diagnostic, w/ lysis of adhesions Devin Carter MD s cystoscopy with lighted stent placement Jamal Lowry MD Indications: Socorro is a 48-year-old female who underwent an uneventful total laparoscopic hysterectomy with bilateral salpingectomy in September 2023. She had what was believed to be a mild cuff cellulitis following her surgery successfully treated with antibiotics. Unfortunately once she resumed all normal daily activities she has developed increasing pelvic pain particularly on the left side which is made markedly worse with intercourse but is now essentially constant. Recent pelvic imaging by MR shows: PROCEDURE: MR PELVIS WO/W CON INDICATIONS: Pelvic pain/dyspareunia post-hysterectomy TECHNIQUE: Coronal HASTE, sagittal breath-hold T2 FSE; axial T1 FSE with and without fat saturation through the pelvis. Optional long- and short-axis uterine nonbreath-hold T2 FSE through the uterus. Sagittal or axial dynamic VIBE during administration of contrast. Post-contrast axial or coronal VIBE/2-D FLASH with fat saturation from the iliac crests to the symphysis. Optional diffusion weighted imaging and ADC may be performed. COMPARISON: [facility], US, US PELVIC COMPLETE WITH TRANSVAGINAL, 10/13/2022, 8:13. FINDINGS: Image quality: Excellent. Uterus: Status post hysterectomy. Vaginal cuff is unremarkable. Adnexa: Both ovaries are normal in size, without suspicious cystic or solid lesions. Urinary system: Bladder wall is normal in thickness. Distal ureters are non distended. Urethra appears normal in morphology. Nodes and vessels: No pelvic or inguinal adenopathy by size criteria. Iliac vessels are normal in size. Bowel and peritoneum: No pathologic free pelvic fluid. Inferior colon and small bowel loops are normal in caliber. Soft tissues: No inguinal hernias. No findings of pelvic floor incompetence in the absence of provocation. Bones: Marrow demonstrates normal overall signal. IMPRESSION: Postsurgical changes from hysterectomy. No acute inflammatory changes or fluid collection is seen in the pelvis. No definite source for pelvic pain identified. While the normal MR results are welcome, these results are at odds with her examination on 01/06/2024 which showed exquisite tenderness and a sense of fullness at the left vaginal fornix which duplicated her pain. In addition she had some tenderness over on the right side as well but no palpable abnormality. After discussion with the patient and her regarding options for further evaluation/treatment, she has opted to proceed with diagnostic laparoscopy. Dr. Earl lowry has been asked to place lighted stents in both ureters in the event that extensive sidewall dissection is required and/or dissection of the ureterovesical junction. She presents now for her scheduled surgery. Surgeon: Devin Carter Anesthesia Type: General Operative Notes Findings: The pelvis demonstrates changes consistent with prior hysterectomy. There were filmy and dense adhesions involving the lateral aspect of the sigmoid colon to the sidewall as well as the left ovary which is encased in adhesions but also adherent at the anti-hilar end to the vaginal cuff at the primary site of the patient's pain. The right ovary is uninvolved with the adhesions. The remainder pelvis following extensive lysis of adhesions appears essentially normal to laparoscopic inspection as does the remainder of the abdomen. Closure Type: primary Specimen(s): other (Peritoneal biopsy, right pelvic sidewall) Applied: catheter and other (Bilateral ureteral stents) Estimated blood loss (mL): 20 Blood products transfused: none Procedure in detail: Following the procedure by Dr. Earl Lowry to place lighted stents in each ureter, the patient was prepped and draped for laparoscopy. A second pre-surgical safety time-out was then taken in accordance with [facility] protocols. A sponge stick was inserted in the vagina. The left side of the umbilicus was infiltrated with 0.5% Marcaine with epinephrine and a 5 mm vertical incision was made on the left lower portion of the umbilicus. A very as needed was used to insufflate the abdomen with carbon dioxide and once sufficiently insufflated, 5 mm trocar and sleeve were placed through the umbilical incision. Correct placement was confirmed by laparoscopic visualization. A 2nd and 3rd 5 mm port or placed in the left and right mid quadrants using a technique similar to the umbilicus. Using a 3 puncture technique, the pelvis and abdomen were thoroughly visualized and photographically documented. The sigmoid colon was retracted toward the midline with an atraumatic forceps and sharp as well as blunt dissection was used to take down the adhesions involving the sigmoid to the sidewall in the left ovary. Once the sigmoid had been mobilized it was then freed from the apex of the vaginal cuff using the same technique. Once the vaginal cuff had been completely freed of adhesions to the sigmoid, the left ovary was mobilized and using a combination of sharp as well as blunt dissection, the anti-hilar surface of the ovary was excised from the cuff and completely freed from the sidewall so as to restore it to its natural position. The pelvis was irrigated and thoroughly inspected. Hyperpigmented area on the right pelvic sidewall was excised and submitted as a pathologic specimen to rule out occult endometriosis. A 4 x 8 cm Surgicel was cut into 4 smaller pieces and used to cover the apex of the vaginal cuff down into the posterior cul-de-sac to reduce the risk of subsequent re-initiation. The pelvis and abdomen were inspected once again and with no other abnormalities noted, the procedure was terminated by have any of the pneumoperitoneum and removal of the laparoscopy sleeves. The laparoscopy port incisions were then closed using 4-0 Monocryl with inverted interrupted stitches, skin glue was applied, and appropriate dressings were applied. The patient was then awakened from anesthesia after removal of the ureteral stents, Carmona, and sponge stick from the vagina. She was then transferred to the PACU for a period of observation and recovery after having tolerated the procedure well. Complications: none Post-operative Condition: stable Disposition: PACU Plan for aftercare: Routine postoperative care
[2024-01-15] MEDS: METOCLOPRAMIDE 10 MG/2 ML INJ IV (16:35)
== END 2024-01-15 18:00 | disposition home or self-care (01) ==
PROVIDERS: Urology; PCP Family Medicine; Referring Provider Obstetrics & Gynecology; Visit Provider Obstetrics & Gynecology
PROC: (CPT 49320; principal; 2024-01-15 14:00)
PROC: (CPT 52332; 2024-01-15 14:00)
DX: R10.2 Pelvic and perineal pain (principal); Z90.710 Acquired absence of both cervix and uterus; N76.0 Acute vaginitis
CPT/HCPCS: 49321; 52332; 76000; J0171; J0690; J1100; J1170; J1885; J2250; J2405; J2704; J2765; J3010; J3410; Q9967

== ENCOUNTER 2024-01-19 10:49 | Emergency (ER) | payer OTHER, SELFPAY ==
[2023-10-09 13:09] VITALS: BMI 33.0
[2024-01-19] VITALS (14 sets, daily range): BP systolic 118–144; BP diastolic 67–94; PULSE 64–99; RESP 18–26; TEMP 36.9; O2SAT 97–100; BMI 28.8
[2024-01-19] MEDS: ONDANSETRON 4 MG/2 ML INJ IV (12:58)
[2024-01-19] MEDS: HYDROMORPHONE 0.5 MG INJ IV (12:58)
[2024-01-19 13:01] LABS: Add Manual Diff / Slide Review NO; Basophils Absolute Auto 100 /uL (0-100); Basophils Percent Auto 0.7 % (0-2); Eosinophils Absolute Auto 100 /uL (0-450); Eosinophils Percent Auto 1.6 % (2-4); Hematocrit 41.5 % (36-46); Hemoglobin 14.2 g/dL (12.0-16.0); Lymphocytes Absolute Auto 1400 /uL (1100-4500); Lymphocytes Percent Auto 16.7 % (25-40); Mean Corpuscular HGB Conc 34.1 % (30-36); Mean Corpuscular Hemoglobin 29.6 PG (26-34); Mean Corpuscular Volume 86.6 fL (80-100); Monocytes Absolute Auto 600 /uL (0-900); Monocytes Percent Auto 7.1 % (3-14); Neutrophils Absolute Auto 6000 /uL (1500-7000); Neutrophils Percent Auto 73.9 % (50-75); Platelet Count 327 X10^3/uL (150-400); Red Blood Cell Count 4.79 X10^6/uL (4.0-5.2); Red Cell Distribution Width 13.2 % (11.6-14.8); White Blood Cell Count 8.1 X10^3/uL (4.5-11.0)
[2024-01-19 13:15] LABS: Alanine Aminotransferase 15 IU/L (<35); Albumin 4.1 g/dL (3.5-5.0); Albumin Globulin Ratio 1.4 (1.0-2.8); Alkaline Phosphatase 79 U/L (38-126); Aspartate Aminotransferase 16 IU/L (14-36); BUN Creatinine Ratio 15.7 (6-22); Bilirubin Total 0.4 mg/dL (0.2-1.3); Blood Urea Nitrogen 11 mg/dL (7-17); Calcium 8.5 mg/dL (8.4-10.2); Carbon Dioxide 25 mmol/L (22-32); Chloride 104 mmol/L (98-107); Estimated Glomerular Filt Rate > 60 mL/min (>60); Globulin 2.9 g/dL (1.7-4.1); Glucose 91 mg/dL (70-100); HEMOLYSIS < 15 (0-50); Lipase 52 U/L (23-300); Potassium 4.1 mmol/L (3.4-5.1); Sodium 137 mmol/L (137-145)
[2024-01-19 13:18] LABS: RBC Urine 0-1/HPF (0-5/HPF); Urine Volume 10mL (spun); WBC Urine 1-5/HPF (0-5/HPF)
[2024-01-19 13:19] LABS: Bacteria Urine Few (2-10); Culture Indicated Urine Specimen Cultured; Squamous Epithelial Cell Urine 0-1 /HPF (0-5/HPF)
--- NOTE | 2024-01-19 14:09 | DI.CT.S_ITS ---
PROCEDURE: CT ABDOMEN PELVIS W CON INDICATIONS: s/p hyst w/ complications, pelvic pain, urethra pain TECHNIQUE: After the administration of intravenous contrast, axial sections acquired from the lung bases to the pubic symphysis. Coronal and sagittal reformats were performed. For radiation dose reduction, the following was used: automated exposure control, adjustment of mA and/or kV according to patient size. COMPARISON: None. FINDINGS: Image quality: Diagnostic. Lower Chest: No significant findings. ABDOMEN: Liver: No solid mass. Gallbladder: Gallbladder sludge versus small stones. No wall thickening or pericholecystic edema to suggest acute cholecystitis. Biliary ducts: No biliary dilation. Pancreas: No ductal dilation. Spleen: Size is within normal limits. Adrenal Glands: No adrenal nodules. Kidneys and Ureters: No hydronephrosis. No solid mass. No complex renal cystic lesion which requires follow up. Stomach and Bowel: Normal colonic caliber, without significant wall thickening. Normal appendix. No significant diverticular disease. Peritoneum: Small amount of free air within the abdomen. No fluid collection Ventral Wall: No significant ventral hernia. Subcutaneous gas over the left lower quadrant abdominal wall. Small umbilical hernia containing fat. Abdominal Nodes: No retroperitoneal or mesenteric adenopathy by size criteria. Vessels: Aorta and inferior vena cava are normal in size. PELVIS: Pelvic Organs: Hysterectomy. Bladder: No bladder wall thickening, accounting for underdistention. Pelvic Nodes: No enlarged lymph nodes. Miscellaneous: No inguinal hernias are seen. Bones: No aggressive osseous abnormality. IMPRESSION: Small amount of pneumoperitoneum and trace gas overlying the left lower quadrant abdominal wall. Findings are most likely postoperative in nature. Hysterectomy with mild fat stranding in the surgical bed, presumably postoperative. No infectious or inflammatory process identified otherwise. Dictated by: Homar Pereira M.D. on 01/19/2024 at 14:59 Approved by: Homar Pereira M.D. on 01/19/2024 at 15:07
--- NOTE | 2024-01-19 14:30 | ED_ITS ---
HPI - General Adult General Chief complaint: Urogenital-Female Stated complaint: sx complications from thursday Time Seen by Provider: 01/19/24 13:49 Source: patient, RN notes reviewed and old records reviewed Mode of arrival: Ambulatory Limitations: no limitations History of Present Illness HPI narrative: 48-year-old female who had a total laparoscopic hysterectomy with bilateral salpingectomy on September 2023, developed increasing pelvic pain had pelvic MRI which did not show acute changes and patient went to the OR on 12/24/2023 and was found to have adhesions with the left ovary encased but adherent to the antihypertensive end of the vaginal cuff the primary site of patient's pain right ovary was uninvolved. Patient had lysis of adhesions as well as cystoscopy and ureteroscopy. Since then patient has had some increased pain particularly with urination and at the urethra and started to have left flank pain and then right flank pain over the last several days. No fevers. She would some nausea today but no vomiting. She states this is different than the pain she was having prior to her return for surgery on the 14 of January. Patient states she has been able to urinate. Has had bowel movements. She has been taking ciprofloxacin and Pyridium without any improvement of symptoms over the last several days she has also been taking oxycodone and naproxen for pain. Patient's home medications include semaglutide and bupropion. Reports an allergy to sulfa. No tobacco, alcohol or recreational drugs. Dr. Carter is her front desk representative. Related Data Home Medications Medication Instructions Recorded Confirmed bupropion HCl 300 mg 24 hr tablet, 300 mg PO QAM 08/18/23 01/15/24 extended release semaglutide 0.25 mg or 0.5 mg (2 0.25 mg SUBCUT QWEEK 01/06/24 01/15/24 mg/3 mL) subcutaneous pen injector Previous Rx's Medication Instructions Recorded naproxen 500 mg tablet 500 mg PO Q8H PRN pain #30 tabs 08/18/23 ciprofloxacin HCl 500 mg tablet 500 mg PO BID 5 days #10 tabs 01/15/24 oxycodone 5 mg tablet 5 mg PO Q4H PRN pain #20 tabs 01/15/24 phenazopyridine 200 mg tablet 200 mg PO TID 3 days #10 tabs 01/17/24 (Pyridium) cephalexin 500 mg capsule 500 mg PO Q6H 10 days #40 caps 01/19/24 meloxicam 7.5 mg tablet 7.5 mg PO BID PRN pain #14 tabs 01/19/24 oxycodone 5 mg tablet 5 mg PO QID PRN pain #10 tabs 01/19/24 Allergies Allergy/AdvReac Type Severity Reaction Status Date / Time Sulfa (Sulfonamide Allergy Intermediate Nausea Verified 01/15/24 13:36 Antibiotics) Review of Systems Review of Systems ROS Unobtainable: All systems reviewed & are unremarkable except as noted in HPI and below Patient History Medical History Vertigo PMDD (premenstrual dysphoric disorder) Mood swings Surgical History History of hysterectomy (10/09/23) Hx of colonoscopy History of surgery Social History household members: spouse Smoking Status: Former smoker alcohol intake: current Smoking Status: Former smoker alcohol intake frequency: holidays/special occasions only Substance Use Type: does not use Exam Narrative Exam Narrative: GENERAL: Alert and oriented x three, female in moderate distress. HEENT: Head normocephalic, atraumatic, EOMI, pupils reactive, face symmetric, moist mucous membranes NECK: Supple, full range of motion CARDIOVASCULAR: Regular rate and rhythm without murmurs, rubs or gallops. RESPIRATORY: Breath sounds equal bilaterally, no wheezes rales or rhonchi. ABDOMEN: Soft, generalized tenderness Normoactive bowel sounds all 4 quadrants. No guarding or rebound, rigidity, no mass : Left CVA tenderness greater than right CVA tenderness. EXTREMITIES: Normal range of motion, no clubbing or edema. Neurovascularly intact NEUROLOGICAL: Cranial nerves II through XII grossly intact. Moving all extremities SKIN: Warm, dry, no petechiae, no rashes or lesions. Initial Vital Signs Initial Vital Signs: Vital Signs Temperature 98.4 F 01/19/24 11:32 Pulse Rate 99 H 01/19/24 11:32 Respiratory Rate 26 H 01/19/24 11:32 Blood Pressure 129/94 H 01/19/24 11:32 Pulse Oximetry 97 01/19/24 11:32 Oxygen Delivery Method Room Air 01/19/24 11:32 Course Orders Ordered: ED Orders 01/19/24 12:30 Urine Culture Stat Urine Microscopic Stat 01/19/24 12:43 Complete Blood Count AUTO DIFF Stat Comprehensive Metabolic Panel Stat Lipase Stat 01/19/24 14:09 CT abdomen pelvis w con Stat Discontinued Medications Hydromorphone HCl (Hydromorphone 0.5 Mg Inj) 0.5 mg IV NOW ONE Stop: 01/19/24 12:51 Last Admin: 01/19/24 12:58 Dose: 0.5 mg Documented By: GRACE Sodium Chloride (Normal Saline 0.9%) 1,000 mls @ 1,000 mls/hr IV BOLUS ONE Stop: 01/19/24 15:08 Last Infusion: 01/19/24 16:06 Dose: Infused Documented By: Admin: 01/19/24 14:59 Dose: 1,000 mls/hr Documented By: DIGNA Ceftriaxone Sodium 2,000 mg/ (Sodium Chloride) 100 mls @ 200 mls/hr IV NOW ONE Stop: 01/19/24 14:25 Last Infusion: 01/19/24 15:55 Dose: Infused Documented By: Admin: 01/19/24 14:59 Dose: 200 mls/hr Documented By: DIGNA Ketorolac Tromethamine (Ketorolac 30 Mg/Ml Vial) 15 mg IV NOW ONE Stop: 01/19/24 14:25 Last Admin: 01/19/24 14:57 Dose: 15 mg Documented By: DIGNA Ondansetron HCl (Ondansetron 4 Mg/2 Ml Inj) 4 mg IV NOW PRN PRN Reason: Nausea And Vomiting Last Admin: 01/19/24 12:58 Dose: 4 mg Documented By: GRACE Ondansetron HCl (Ondansetron 4 Mg Odt) 4 mg PO NOW PRN PRN Reason: Nausea And Vomiting Vital Signs Vital signs: Vital Signs - 8 hr 01/19/24 11:32 01/19/24 11:47 01/19/24 11:48 Temperature 98.4 F Pulse Rate 99 H 79 80 Respiratory Rate 26 H Blood Pressure 129/94 H Pulse Oximetry 97 99 100 Oxygen Delivery Method Room Air 01/19/24 11:48 01/19/24 12:00 01/19/24 12:00 Temperature Pulse Rate 82 Respiratory Rate Blood Pressure 123/83 118/79 Pulse Oximetry 99 Oxygen Delivery Method 01/19/24 12:10 01/19/24 12:10 01/19/24 12:30 Temperature Pulse Rate 76 Respiratory Rate Blood Pressure 143/67 H 127/80 Pulse Oximetry 99 Oxygen Delivery Method 01/19/24 12:30 01/19/24 13:00 01/19/24 13:03 Temperature Pulse Rate 81 70 84 Respiratory Rate Blood Pressure Pulse Oximetry 99 100 99 Oxygen Delivery Method 01/19/24 13:03 01/19/24 13:30 01/19/24 13:30 Temperature Pulse Rate 73 Respiratory Rate Blood Pressure 144/94 H 127/85 Pulse Oximetry 97 Oxygen Delivery Method 01/19/24 14:04 01/19/24 14:40 01/19/24 15:00 Temperature Pulse Rate 65 75 64 Respiratory Rate Blood Pressure Pulse Oximetry 97 100 Oxygen Delivery Method 01/19/24 15:30 01/19/24 16:06 Temperature Pulse Rate 71 67 Respiratory Rate 18 Blood Pressure 136/80 Pulse Oximetry 100 100 Oxygen Delivery Method Room Air Medical Decision Making Lab Data 01/19/24 12:43 01/19/24 12:43 Labs: Lab Results 01/19/24 01/19/24 Range/Units 12:30 12:43 WBC 8.1 (4.5-11.0) X10^3/uL RBC 4.79 (4.0-5.2) X10^6/uL Hgb 14.2 (12.0-16.0) g/dL Hct 41.5 (36-46) % MCV 86.6 (80-100) fL MCH 29.6 (26-34) PG MCHC 34.1 (30-36) % RDW 13.2 (11.6-14.8) % Plt Count 327 (150-400) X10^3/uL Neut % (Auto) 73.9 (50-75) % Lymph % (Auto) 16.7 L (25-40) % [place] % (Auto) 7.1 (3-14) % Eos % (Auto) 1.6 L (2-4) % Baso % (Auto) 0.7 (0-2) % Neut # (Auto) 6000 (4892-3856) /uL Lymph # (Auto) 1400 (9448-6569) /uL [place] # (Auto) 600 (0-900) /uL Eos # (Auto) 100 (0-450) /uL Baso # (Auto) 100 (0-100) /uL Sodium 137 (137-145) mmol/L Potassium 4.1 (3.4-5.1) mmol/L Chloride 104 (98-107) mmol/L Carbon Dioxide 25 (22-32) mmol/L BUN 11 (7-17) mg/dL Creatinine 0.70 (0.52-1.04) mg/dL Estimated GFR > 60 (>60) mL/min BUN/Creatinine Ratio 15.7 (6-22) Glucose 91 (70-100) mg/dL Calcium 8.5 (8.4-10.2) mg/dL Total Bilirubin 0.4 (0.2-1.3) mg/dL AST 16 (14-36) IU/L ALT 15 (<35) IU/L Alkaline Phosphatase 79 (38-126) U/L Total Protein 7.0 (6.3-8.2) g/dL Albumin 4.1 (3.5-5.0) g/dL Globulin 2.9 (1.7-4.1) g/dL Albumin/Globulin Ratio 1.4 (1.0-2.8) Lipase 52 (23-300) U/L Urine RBC 0-1/hpf (0-5/HPF) Urine WBC 1-5/hpf (0-5/HPF) Ur Squamous Epith Cells 0-1 /hpf (0-5/HPF) Urine Bacteria Few (2-10) H (None) Ur Culture Indicated? Specimen cultured Vol Urine Centrifuged 10ml (spun) Urine Dip Bedside Urine Glucose Negative Bedside Urine Bilirubin - Negative Bedside Urine Ketone - Negative Urine Specific [place] 1.005 Bedside Urine Occult Blood +++ Bedside Urine pH 7.0 Bedside Urine Protein - Negative Bedside Urine Urobilinogen - Negative Bedside Urine Nitrite - Negative Bedside Urine Leukocytes +/- 15 Esterase Point of care testing: Urine Dip Bedside Urine Glucose Negative Bedside Urine Bilirubin - Negative Bedside Urine Ketone - Negative Urine Specific [place] 1.005 Bedside Urine Occult Blood +++ Bedside Urine pH 7.0 Bedside Urine Protein - Negative Bedside Urine Urobilinogen - Negative Bedside Urine Nitrite - Negative Bedside Urine Leukocytes +/- [address] [facility] Narrative Medical decision making narrative: 48-year-old female with complaint of worsening abdominal pain with new reason pain, dysuria and bilateral flank pain. Patient does appear to be septic. Patient did have a pelvic MRI on 01/08/2024 which showed no acute change, patient had laparoscopic evaluation with Dr. Carter and had lysis of adhesions with her ovary adhesed to the top of the vaginal cuff. Patient has since had dysuria urinary frequency and discomfort that has not increased and gone up into her flank. Labs show white count of 8.1 hemoglobin of 14, platelets of 327 she had a white count of 14 back in September. Electrolytes, renal function LFTs are all appropriate. Urine shows leukocyte esterase bacteria 1 red cell 1-5 white cells 1 squamous, was sent for culture. CT abdomen pelvis shows no acute change at this time. Shows possible infection she has been on ciprofloxacin there is no prior urine culture for comparison. Patient was given a dose of Rocephin here in the department. Discussed with patient we will change her antibiotics continue with the oral pain medication, she can continue with Pyridium for the short term. We will give a new prescription have her stop the ciprofloxacin. Make sure to have her follow up with airflight attendants supervisor in the next several days for recheck. Dr. Carter will be out so I spoke with Dr. Call who is on-call to help facilitate follow-up and reviewed all labs and findings. Reviewed all this with the patient. She feels comfortable with this plan. Discussed should have follow up with the urine culture to make sure that it does grow bacteria if negative she will need further evaluation with Gynecology. She states she is supposed to call to set up follow up with goal in the next couple days. Discussed return precautions all questions answered. Patient states pain adequately controlled at this time. Discharge Plan Departure Patient Disposition: Home Clinical Impression: Pyelonephritis Instructions: DI for Kidney Infection Activity Restrictions/Additional Instructions: I spoke with Dr. Call who is covering for Dr. Carter. Please call the office to make sure you have a follow up appointment in the next several days. Suspect you have pyelonephritis or kidney infection. This can sometimes occur when bacterial infections from the urinary tract move up into the kidneys and can be quite uncomfortable. Please stop the ciprofloxacin and start the new oral antibiotic that you has been prescribed. Take your first dose this evening. You have a urine culture pending if it shows resistance to the antibiotic prescribed he will be contacted to change it. You can take Tylenol up to a 1000 mg every 6 hours as needed for pain and/or meloxicam 1 tablet every 12 hours as needed for pain. Do not take other NSAIDs such as Aleve, ibuprofen or naproxen with this medication. If needed you can take oxycodone 1-2 tablets every 6 hours as needed. This medication can make you sleepy do not drive, perform hazardous activities or make any major decisions while taking it. This medication will make you constipated please take a stool softener once to twice daily until stools are soft and regular. [facility] Please return for fevers new or worsening abdominal back or flank pain, inability to urinate, vomiting, lightheadedness or passing out or other new or concerning changes. Prescriptions: New cephalexin 500 mg capsule 500 mg PO Q6H 10 Days Qty: 40 0RF meloxicam 7.5 mg tablet 7.5 mg PO BID PRN (Reason: pain) Qty: 14 0RF oxycodone 5 mg tablet 5 mg PO QID PRN (Reason: pain) Qty: 10 0RF No Action phenazopyridine [Pyridium] 200 mg tablet 200 mg PO TID 3 Days Qty: 10 2RF semaglutide 0.25 mg or 0.5 mg (2 mg/3 mL) pen injector 0.25 mg SUBCUT QWEEK Rx Instructions: for 4 weeks bupropion HCl 300 mg tablet extended release 24 hr 300 mg PO QAM naproxen 500 mg tablet 500 mg PO Q8H PRN (Reason: pain) Qty: 30 12RF Rx Instructions: For best effect, start medication 1-2 days prior to expected onset of period oxycodone 5 mg tablet 5 mg PO Q4H PRN (Reason: pain) Qty: 20 0RF ciprofloxacin HCl 500 mg tablet 500 mg PO BID 5 Days Qty: 10 0RF Referrals: Reji Monroe MD [Primary Care Provider] - Stand Alone Forms: Patient Portal/API
--- NOTE | 2024-01-19 14:38 | PC.NURSE ---
1400 Patient reports significant reduction in pain after dilaudid. I had her walk to the bathroom again and she stated she was now able to urinate a normal amount. Bladder scan post void is now 0ml.
--- NOTE | 2024-01-19 14:42 | PC.NURSE ---
Patient reports she had a hysterectomy about a month ago which resulted in an infection. She was on two different antibiotics however abdominal pain continued. Two weeks ago they did an abdominal MRI which was negative. On Thursday her surgeon did another laparoscopic surgery to try and determine the source of her continued severe abdominal pain. They then found that her ovary had imbedded itself in my vagina and was surrounded in scar tissue. They removed the ovary and stitched it in place and closed her back up. During this surgery they put fiberoptics up my urethra into both ureters and up to the kidneys so they could light them up and wouldn't cut them during the surgery. She was told that there would be urethral pain after but it is more severe than expected and causing her to have urgency, frequency, and retention. She reports her flanks are now hurting and the pyridium is no longer controlling the pain.
[2024-01-19] MEDS: KETOROLAC 30 MG/ML VIAL 15 MG IV (14:57)
[2024-01-19] MEDS: SODIUM CHLORIDE 0.9% 1,000 ML 1000 ML IV (14:59)
[2024-01-19] MEDS: cefTRIAXone 2,000 MG in SODIUM CHLORIDE 0.9% 100 ML 200 MG IV (14:59)
== END 2024-01-19 16:07 | disposition home or self-care (01) ==
PROVIDERS: Emergency Provider Emergency Medicine; PCP Family Medicine
DX: N12 Tubulo-interstitial nephritis, not specified as acute or chronic (principal)
CPT/HCPCS: 36415; 51798; 74177; 80053; 81003; 81015; 83690; 85025; 87077; 87086; 87186; 96365; 96375; 99284; J0696; J1170; J1885; J2405; Q9967

== ENCOUNTER 2024-01-20 09:16 | Observation (INO) | payer OTHER, SELFPAY ==
[2023-10-09 13:09] VITALS: BMI 33.0
[2024-01-20] VITALS (7 sets, daily range): BP systolic 115–141; BP diastolic 73–98; PULSE 61–81; RESP 14–16; TEMP 36.7–36.9; O2SAT 97–99; BMI 28.8
--- NOTE | 2024-01-20 10:04 | ED.FEMALEGU ---
HPI - Female Genitourinary General Chief complaint: Urogenital-Female Stated complaint: Surgery Thursday, was seen Here Yesterday Time Seen by Provider: 01/20/24 09:54 Source: patient Mode of arrival: Ambulatory History of Present Illness HPI Narrative: Patient seen here yesterday for postoperative pain. She and for pyelonephritis. Patient has CT imaging blood work and urinalysis done. Director Of Home Health Services service was contacted for close follow up but however patient states has intractable pain nausea vomiting and feeling very weak. Patient had antibiotics changed from Cipro to Keflex yesterday as well as her pain medication. Still not feeling better. Please see notes below. History of Present Illness HPI narrative: 48-year-old female who had a total laparoscopic hysterectomy with bilateral salpingectomy on September 2023, developed increasing pelvic pain had pelvic MRI which did not show acute changes and patient went to the OR on 12/24/2023 and was found to have adhesions with the left ovary encased but adherent to the antihypertensive end of the vaginal cuff the primary site of patient's pain right ovary was uninvolved. Patient had lysis of adhesions as well as cystoscopy and ureteroscopy. Since then patient has had some increased pain particularly with urination and at the urethra and started to have left flank pain and then right flank pain over the last several days. No fevers. She would some nausea today but no vomiting. She states this is different than the pain she was having prior to her return for surgery on the 14 of January. Patient states she has been able to urinate. Has had bowel movements. She has been taking ciprofloxacin and Pyridium without any improvement of symptoms over the last several days she has also been taking oxycodone and naproxen for pain. Patient's home medications include semaglutide and bupropion. Reports an allergy to sulfa. No tobacco, alcohol or recreational drugs. Dr. Carter is her sample prep technician. Related Data Home Medications Medication Instructions Recorded Confirmed bupropion HCl 300 mg 24 hr tablet, 300 mg PO QAM 08/18/23 01/20/24 extended release semaglutide 0.25 mg or 0.5 mg (2 0.25 mg SUBCUT QWEEK 01/06/24 01/20/24 mg/3 mL) subcutaneous pen injector Previous Rx's Medication Instructions Recorded cephalexin 500 mg capsule 500 mg PO Q6H 10 days #40 caps 01/19/24 ondansetron 4 mg disintegrating 4 mg PO Q6H PRN nausea and 01/21/24 tablet vomiting #10 tabs oxycodone 5 mg tablet 5 mg PO Q4H PRN pain #30 tabs 01/21/24 phenazopyridine 200 mg tablet 200 mg PO TID #15 tabs 01/21/24 (Pyridium) Allergies Allergy/AdvReac Type Severity Reaction Status Date / Time Sulfa (Sulfonamide Allergy Intermediate Nausea Verified 01/20/24 09:28 Antibiotics) Review of Systems Review of Systems Narrative: GENERAL: negative chills, fatigue, malaise, fever, sweats. HEENT: negative sinus pain, ear pain, sore throat RESPIRATORY: negative dyspnea, cough CARDIOVASCULAR: negative chest pain, palpitations GASTROINTESTINAL: Positive nausea, vomiting, abdominal pain : negative dysuria, frequency, hematuria MUSCULOSKELETAL: negative muscle or bony pain SKIN: negative rash, skin lesions NEUROLOGIC: negative weakness, numbness Patient History Medical History Vertigo PMDD (premenstrual dysphoric disorder) Mood swings Surgical History History of hysterectomy (10/09/23) Hx of colonoscopy History of surgery alcohol intake frequency: holidays/special occasions only Substance Use Type: does not use Exam Narrative Exam Narrative: GENERAL: in no distress, not toxic not dyspneic HEAD: Normocephalic. EYES: Pupils equal round ENT: Mucous membranes moist. NECK: Trachea midline. CARDIOVASCULAR: Regular rate and rhythm RESPIRATORY: Clear to auscultation. Breath sounds equal bilaterally. No wheezes, rales, or rhonchi. GASTROINTESTINAL: Abdomen soft, mild diffuse lower have abdominal/pelvic discomfort/tenderness. No peritoneal signs. No pain out of portion exam. Bowel sounds are present. EXTREMITIES: No gross deformities. BACK: No flank tenderness. NEURO: AOx4. Clear speech SKIN: Warm and dry PSYCH: Not anxious, is cooperative Initial Vital Signs Initial Vital Signs: Vital Signs Temperature 98.4 F 01/20/24 09:25 Pulse Rate 77 01/20/24 09:25 Respiratory Rate 16 01/20/24 09:25 Blood Pressure 122/98 H 01/20/24 09:25 Pulse Oximetry 99 01/20/24 09:25 Oxygen Delivery Method Room Air 01/20/24 09:25 Course Orders Ordered: Discontinued Medications Acetaminophen (Acetaminophen 325 Mg Tablet) 650 mg PO Q6H [facility] Last Admin: 01/21/24 06:25 Dose: 650 mg Documented By: Admin: 01/21/24 01:21 Dose: 650 mg Documented By: Admin: 01/20/24 20:07 Dose: 650 mg Documented By: Admin: 01/20/24 13:57 Dose: 650 mg Documented By: ARJUN Docusate Sodium (Docusate 100 Mg Capsule) 100 mg PO BID [facility] Last Admin: 01/21/24 09:50 Dose: 100 mg Documented By: Admin: 01/20/24 20:07 Dose: 100 mg Documented By: ARJUN Hydromorphone HCl (Hydromorphone 0.5 Mg Inj) 0.5 mg IV Q2H PRN PRN Reason: Pain, Severe (7-10) Sodium Chloride (Normal Saline 0.9%) 1,000 mls @ 1,000 mls/hr IV BOLUS ONE Stop: 01/20/24 11:02 Last Infusion: 01/20/24 12:31 Dose: Infused Documented By: Admin: 01/20/24 10:21 Dose: 1,000 mls/hr Documented By: Cefazolin Sodium/Dextrose (Ancef) 100 mls @ 200 mls/hr IV NOW ONE Stop: 01/20/24 10:48 Last Infusion: 01/20/24 11:08 Dose: Infused Documented By: Admin: 01/20/24 10:26 Dose: 200 mls/hr Documented By: Cefazolin Sodium 1 gm/ Sodium (Chloride) 100 mls @ 200 mls/hr IV Q8H [facility] Last Admin: 01/20/24 10:45 Dose: Not Given Documented By: Cefazolin Sodium 1 gm/ Sodium (Chloride) 100 mls @ 200 mls/hr IV Q8H [facility] Lactated Ringer's (Lactated Ringers) 1,000 mls @ 100 mls/hr IV CONT [facility] Last Admin: 01/21/24 01:19 Dose: 100 mls/hr Documented By: Infusion: 01/21/24 01:15 Dose: Infused Documented By: Admin: 01/20/24 13:58 Dose: 100 mls/hr Documented By: ARJUN Cefazolin Sodium 1 gm/ Sodium (Chloride) 100 mls @ 200 mls/hr IV Q8H [facility] Last Admin: 01/21/24 02:42 Dose: Not Given Documented By: Infusion: 01/20/24 21:18 Dose: Infused Documented By: Admin: 01/20/24 20:00 Dose: 200 mls/hr Documented By: ARJUN Cefazolin Sodium 1 gm/ Sodium (Chloride) 100 mls @ 200 mls/hr IV Q8H [facility] Last Infusion: 01/21/24 04:30 Dose: Infused Documented By: Admin: 01/21/24 03:54 Dose: 200 mls/hr Documented By: LUTHER Ibuprofen (Ibuprofen 600 Mg Tablet) 600 mg PO Q6H [facility] Last Admin: 01/21/24 06:26 Dose: 600 mg Documented By: Admin: 01/21/24 01:24 Dose: 600 mg Documented By: Admin: 01/20/24 20:07 Dose: 600 mg Documented By: Admin: 01/20/24 13:54 Dose: 600 mg Documented By: ARJUN Morphine Sulfate (Morphine 4 Mg/Ml Inj) 4 mg IV NOW ONE Stop: 01/20/24 10:04 Last Admin: 01/20/24 10:21 Dose: 4 mg Documented By: Naloxone HCl (Naloxone 0.4 Mg/Ml Vial) 0.2 mg IV Q2MIN PRN PRN Reason: Opiate Reversal Ondansetron HCl (Ondansetron 4 Mg/2 Ml Inj) 4 mg IV NOW ONE Stop: 01/20/24 10:04 Last Admin: 01/20/24 10:21 Dose: 4 mg Documented By: Ondansetron HCl (Ondansetron 4 Mg/2 Ml Inj) 4 mg IV Q8HR PRN PRN Reason: Nausea And Vomiting Oxycodone HCl (Oxycodone Ir 5 Mg Tablet) 5 mg PO Q3H PRN PRN Reason: Pain, Moderate (4-6) Pantoprazole Sodium (Pantoprazole Dr 20 Mg Tablet) 20 mg PO 0600 [facility] Last Admin: 01/21/24 06:25 Dose: 20 mg Documented By: LUTHER Phenazopyridine HCl (Phenazopyridine 100 Mg Tablet) 200 mg PO TID [facility] Last Admin: 01/21/24 09:56 Dose: 200 mg Documented By: Admin: 01/20/24 20:06 Dose: 200 mg Documented By: Admin: 01/20/24 14:03 Dose: 200 mg Documented By: ARJUN Sodium Chloride (Sodium Chloride 0.9% Flush) 10 ml IV PRN PRN PRN Reason: Flush Last Admin: 01/21/24 01:27 Dose: 10 ml Documented By: LUTHER Sodium Chloride (Sodium Chloride 0.9% Flush) 10 ml IV BID MARISA Last Admin: 01/21/24 10:00 Dose: Not Given Documented By: ARJUN Vital Signs Vital signs: Vital Signs - 8 hr 01/20/24 09:25 01/20/24 09:37 Temperature 98.4 F Pulse Rate 77 77 Respiratory Rate 16 Blood Pressure 122/98 H 116/88 Pulse Oximetry 99 99 Oxygen Delivery Method Room Air MDM - Female Genitourinary Lab Data 01/20/24 10:18 01/20/24 10:18 Labs: Lab Results 01/20/24 Range/Units 10:18 WBC 8.3 (4.5-11.0) X10^3/uL RBC 4.69 (4.0-5.2) X10^6/uL Hgb 13.9 (12.0-16.0) g/dL Hct 40.9 (36-46) % MCV 87.3 (80-100) fL MCH 29.7 (26-34) PG MCHC 34.0 (30-36) % RDW 13.4 (11.6-14.8) % Plt Count 311 (150-400) X10^3/uL Neut % (Auto) 76.3 H (50-75) % Lymph % (Auto) 13.2 L (25-40) % [place] % (Auto) 7.4 (3-14) % Eos % (Auto) 2.5 (2-4) % Baso % (Auto) 0.6 (0-2) % Neut # (Auto) 6400 (3669-2595) /uL Lymph # (Auto) 1100 (9416-4543) /uL [place] # (Auto) 600 (0-900) /uL Eos # (Auto) 200 (0-450) /uL Baso # (Auto) 0 (0-100) /uL Sodium 137 (137-145) mmol/L Potassium 4.2 (3.4-5.1) mmol/L Chloride 106 (98-107) mmol/L Carbon Dioxide 25 (22-32) mmol/L BUN 10 (7-17) mg/dL Creatinine 0.79 (0.52-1.04) mg/dL Estimated GFR > 60 (>60) mL/min BUN/Creatinine Ratio 12.7 (6-22) Glucose 89 (70-100) mg/dL Calcium 8.2 L (8.4-10.2) mg/dL Total Bilirubin 0.4 (0.2-1.3) mg/dL AST 31 (14-36) IU/L ALT 29 (<35) IU/L Alkaline Phosphatase 76 (38-126) U/L Total Protein 7.0 (6.3-8.2) g/dL Albumin 4.0 (3.5-5.0) g/dL Globulin 3.0 (1.7-4.1) g/dL Albumin/Globulin Ratio 1.3 (1.0-2.8) Imaging Data CT scan - abdomen/pelvis: Radiologist's Impression: [place] [address] CT Scan Report Signed Patient: Socorro Elliott MR#: [id number] : 1975 Acct:[id number] Age/Sex: 48 / F Date of Service: 01/19/24 Loc: ED Accession Number: [id number] Procedure: CT abdomen pelvis w con Ordering Provider: Kylie Vega D.O. PROCEDURE: CT ABDOMEN PELVIS W CON INDICATIONS: s/p hyst w/ complications, pelvic pain, urethra pain TECHNIQUE: After the administration of intravenous contrast, axial sections acquired from the lung bases to the pubic symphysis. Coronal and sagittal reformats were performed. For radiation dose reduction, the following was used: automated exposure control, adjustment of mA and/or kV according to patient size. COMPARISON: None. FINDINGS: Image quality: Diagnostic. Lower Chest: No significant findings. ABDOMEN: Liver: No solid mass. Gallbladder: Gallbladder sludge versus small stones. No wall thickening or pericholecystic edema to suggest acute cholecystitis. Biliary ducts: No biliary dilation. Pancreas: No ductal dilation. Spleen: Size is within normal limits. Adrenal Glands: No adrenal nodules. Kidneys and Ureters: No hydronephrosis. No solid mass. No complex renal cystic lesion which requires follow up. Stomach and Bowel: Normal colonic caliber, without significant wall thickening. Normal appendix. No significant diverticular disease. Peritoneum: Small amount of free air within the abdomen. No fluid collection Ventral Wall: No significant ventral hernia. Subcutaneous gas over the left lower quadrant abdominal wall. Small umbilical hernia containing fat. Abdominal Nodes: No retroperitoneal or mesenteric adenopathy by size criteria. Vessels: Aorta and inferior vena cava are normal in size. PELVIS: Pelvic Organs: Hysterectomy. Bladder: No bladder wall thickening, accounting for underdistention. Pelvic Nodes: No enlarged lymph nodes. Miscellaneous: No inguinal hernias are seen. Bones: No aggressive osseous abnormality. IMPRESSION: Small amount of pneumoperitoneum and trace gas overlying the left lower quadrant abdominal wall. Findings are most likely postoperative in nature. Hysterectomy with mild fat stranding in the surgical bed, presumably postoperative. No infectious or inflammatory process identified otherwise. Dictated by: Homar Pereira M.D. on 01/19/2024 at 14:59 Approved by: Homar Pereira M.D. on 01/19/2024 at 15:07 [facility] Narrative Medical decision making narrative: Patient seen here yesterday for postoperative pain. She and for pyelonephritis. Patient has CT imaging blood work and urinalysis done. Director Of Home Health Services service was contacted for close follow up but however patient states has intractable pain nausea vomiting and feeling very weak. Patient had antibiotics changed from Cipro to Keflex yesterday as well as her pain medication. Still not feeling better. Please see notes below. History of Present Illness HPI narrative: 48-year-old female who had a total laparoscopic hysterectomy with bilateral salpingectomy on September 2023, developed increasing pelvic pain had pelvic MRI which did not show acute changes and patient went to the OR on 12/24/2023 and was found to have adhesions with the left ovary encased but adherent to the antihypertensive end of the vaginal cuff the primary site of patient's pain right ovary was uninvolved. Patient had lysis of adhesions as well as cystoscopy and ureteroscopy. Since then patient has had some increased pain particularly with urination and at the urethra and started to have left flank pain and then right flank pain over the last several days. No fevers. She would some nausea today but no vomiting. She states this is different than the pain she was having prior to her return for surgery on the 14 of January. Patient states she has been able to urinate. Has had bowel movements. She has been taking ciprofloxacin and Pyridium without any improvement of symptoms over the last several days she has also been taking oxycodone and naproxen for pain. Patient's home medications include semaglutide and bupropion. Reports an allergy to sulfa. No tobacco, alcohol or recreational drugs. Dr. Carter is her sample prep technician. After history and exam CBC CMP morphine Zofran normal saline admit for pain control MDM Medical records reviewed: ER visit here yesterday Differential considered: Includes but not limited to intractable vomiting intractable pain postoperative pain sepsis Lab Test results independently reviewed as above. Pertinent findings: Consultations: 1028. Spoke with publications distribution clerk, Dr. Dixon, she will admit patient. She will see patient in 2 hours. Start Ancef 2 g now and then 1 g Q 8 hours. Treatments: Morphine Zofran normal saline Re-evaluations: Reviewed with patient results and treatment plan she does agree for admission. For pain control hydration nausea control Discussion: Appropriate for admission. Patient was here yesterday and medications were changed however no improvement were accomplished for nausea and pain control. And able to take home medications and hydration. Diagnosis: Intractable abdominal pain Discharge Plan Departure Patient Disposition: Admitted as Observation Clinical Impression: Intractable abdominal pain Admit Date/Time: 01/20/24 12:29 Admit Provider: Georgiana Dixon
[2024-01-20] MEDS: ONDANSETRON 4 MG/2 ML INJ IV (10:21)
[2024-01-20] MEDS: SODIUM CHLORIDE 0.9% 1,000 ML 1000 ML IV (10:21)
[2024-01-20] MEDS: MORPHINE 4 MG/ML INJ IV (10:21)
[2024-01-20] MEDS: CEFAZOLIN 2 GM/100 ML PREMIX 100 ML IV (10:26)
[2024-01-20 10:35] LABS: Add Manual Diff / Slide Review NO; Basophils Absolute Auto 0 /uL (0-100); Basophils Percent Auto 0.6 % (0-2); Eosinophils Absolute Auto 200 /uL (0-450); Eosinophils Percent Auto 2.5 % (2-4); Hematocrit 40.9 % (36-46); Hemoglobin 13.9 g/dL (12.0-16.0); Lymphocytes Absolute Auto 1100 /uL (1100-4500); Lymphocytes Percent Auto 13.2 % (25-40); Mean Corpuscular Hemoglobin 29.7 PG (26-34); Mean Corpuscular Volume 87.3 fL (80-100); Monocytes Absolute Auto 600 /uL (0-900); Monocytes Percent Auto 7.4 % (3-14); Neutrophils Absolute Auto 6400 /uL (1500-7000); Neutrophils Percent Auto 76.3 % (50-75); Platelet Count 311 X10^3/uL (150-400); Red Blood Cell Count 4.69 X10^6/uL (4.0-5.2); Red Cell Distribution Width 13.4 % (11.6-14.8); White Blood Cell Count 8.3 X10^3/uL (4.5-11.0)
[2024-01-20 10:40] LABS: Alanine Aminotransferase 29 IU/L (<35); Albumin Globulin Ratio 1.3 (1.0-2.8); Alkaline Phosphatase 76 U/L (38-126); Aspartate Aminotransferase 31 IU/L (14-36); BUN Creatinine Ratio 12.7 (6-22); Bilirubin Total 0.4 mg/dL (0.2-1.3); Blood Urea Nitrogen 10 mg/dL (7-17); Calcium 8.2 mg/dL (8.4-10.2); Carbon Dioxide 25 mmol/L (22-32); Chloride 106 mmol/L (98-107); Estimated Glomerular Filt Rate > 60 mL/min (>60); Glucose 89 mg/dL (70-100); HEMOLYSIS < 15 (0-50); Potassium 4.2 mmol/L (3.4-5.1); Sodium 137 mmol/L (137-145)
--- NOTE | 2024-01-20 13:23 | PM.HP.1 ---
History of Present Illness History of Present Illness Date Patient Seen: 01/20/24 Time Patient Seen: 12:30 Chief complaint: Surgery Thursday, was seen Here Yesterday Narrative: Patient is a 48 year old who presents with uncontrolled pain, nausea and vomiting, and dizziness. She underwent a laparoscopy last week with ureteral stents. She has had trouble with pain control. No fever or chills. No incisional issues. PFSH Medical History Vertigo PMDD (premenstrual dysphoric disorder) Mood swings Surgical History History of hysterectomy (10/09/23) Hx of colonoscopy History of surgery Social History household members: spouse Smoking Status: Former smoker alcohol intake: current Meds Home Medications and Allergies Home Medications Medication Instructions Recorded Confirmed Type bupropion HCl 300 mg 24 hr tablet, 300 mg PO QAM 08/18/23 03/02/24 History extended release semaglutide 0.25 mg or 0.5 mg (2 0.25 mg SUBCUT QWEEK 01/06/24 03/02/24 History mg/3 mL) subcutaneous pen injector ondansetron 4 mg disintegrating 4 mg PO Q6H PRN nausea and 01/21/24 03/02/24 Rx tablet vomiting #10 tabs oxycodone 5 mg tablet 5 mg PO Q4H PRN pain #30 tabs 01/21/24 03/02/24 Rx phenazopyridine 200 mg tablet 200 mg PO TID #15 tabs 01/21/24 03/02/24 Rx (Pyridium) nitrofurantoin macrocrystal 100 mg 100 mg PO BID #10 caps 02/12/24 03/02/24 Rx capsule Allergies Allergy/AdvReac Type Severity Reaction Status Date / Time Sulfa (Sulfonamide Allergy Intermediate Nausea Verified 03/02/24 08:55 Antibiotics) Review of Systems Review of Systems ROS: Yes All systems reviewed with the patient and are negative except as otherwise documented Exam Vital Signs (past 8 hours): - 01/20/24 09:25 01/20/24 09:37 01/20/24 10:00 Temperature 98.4 F Pulse Rate 77 77 81 Respiratory Rate 16 Blood Pressure 122/98 H 116/88 Pulse Oximetry 99 99 99 Oxygen Delivery Method Room Air 01/20/24 10:01 01/20/24 10:01 01/20/24 11:49 Temperature Pulse Rate 75 63 Respiratory Rate 14 Blood Pressure 131/77 122/74 Pulse Oximetry 99 98 Oxygen Delivery Method Room Air Oxygen Delivery Method Room Air Narrative Exam Narrative: Gen: Moderate distress due to pain Lungs: CTA bilat CV: RRR Abd: Soft, flat. No guarding or rebound tenderness. Incisions: C/D/I. No erythema or drainage. Ext: No edema Objective Labs 01/20/24 10:18 01/20/24 10:18 Labs: Laboratory Results - last 24 hr 01/20/24 10:18 WBC 8.3 RBC 4.69 Hgb 13.9 Hct 40.9 MCV 87.3 MCH 29.7 MCHC 34.0 RDW 13.4 Plt Count 311 Neut % (Auto) 76.3 H Lymph % (Auto) 13.2 L [place] % (Auto) 7.4 Eos % (Auto) 2.5 Baso % (Auto) 0.6 Neut # (Auto) 6400 Lymph # (Auto) 1100 [place] # (Auto) 600 Eos # (Auto) 200 Baso # (Auto) 0 Sodium 137 Potassium 4.2 Chloride 106 Carbon Dioxide 25 BUN 10 Creatinine 0.79 Estimated GFR > 60 BUN/Creatinine Ratio 12.7 Glucose 89 Calcium 8.2 L Total Bilirubin 0.4 AST 31 ALT 29 Alkaline Phosphatase 76 Total Protein 7.0 Albumin 4.0 Globulin 3.0 Albumin/Globulin Ratio 1.3 Assessment & Plan Assessment & Plan narrative: Assessment: 48 year old with intractable pain, n/v and dizziness that cannot be controlled outpatient. Plan: Admit for Observation Pain management Antiemetics Time-Based Coding :: [TOTAL MINUTES] spent with patient and on the chart (including review of chart, obtaining history, exam, reviewing outside data, placing orders, documenting exam and treatment plan, and counseling patient) on [DATE].
[2024-01-20] MEDS: IBUPROFEN 600 MG TABLET PO ×2 (13:54→20:07)
[2024-01-20] MEDS: ACETAMINOPHEN 325 MG TABLET 650 MG PO ×2 (13:57→20:07)
[2024-01-20] MEDS: LACTATED RINGERS 1,000 ML 100 ML IV (13:58)
[2024-01-20] MEDS: PHENAZOPYRIDINE 100 MG TABLET 200 MG PO ×2 (14:03→20:06)
--- NOTE | 2024-01-20 19:05 | PC.NURSE ---
Patient arrives to room 202 this afternoon at approximately 1340. She is A&Ox4, on RA. She reports pain to R flank and back is controllable at 4/10 pain. She denies n/v and is able to tolerate dinner. She is oriented to room, unit routines. IVF LR at 100 ml/hr. Incision sites to abdomen x3 c/d/i SHAILA. abdomen soft, non tender to touch. LBM 01/16. Admission assessment completed. Family at bedside supportive. Continuous monitoring.
[2024-01-20] MEDS: CEFAZOLIN VIAL 1 GM in SODIUM CHLORIDE 0.9% 100 ML IV (20:00)
[2024-01-20] MEDS: DOCUSATE 100 MG CAPSULE PO (20:07)
[2024-01-21 01:11] VITALS: BP 117/73; PULSE 76; RESP 12; TEMP 36.9; O2SAT 96
[2024-01-21] MEDS: LACTATED RINGERS 1,000 ML 100 ML IV (01:19)
[2024-01-21] MEDS: ACETAMINOPHEN 325 MG TABLET 650 MG PO ×2 (01:21→06:25)
[2024-01-21] MEDS: IBUPROFEN 600 MG TABLET PO ×2 (01:24→06:26)
[2024-01-21] MEDS: SODIUM CHLORIDE 0.9% FLUSH 10 ML IV (01:27)
[2024-01-21] MEDS: CEFAZOLIN VIAL 1 GM in SODIUM CHLORIDE 0.9% 100 ML IV (03:54)
[2024-01-21] MEDS: PANTOPRAZOLE DR 20 MG TABLET PO (06:25)
[2024-01-21 08:00] VITALS: BP 123/82; PULSE 66; RESP 16; TEMP 36.8; O2SAT 99
[2024-01-21] MEDS: DOCUSATE 100 MG CAPSULE PO (09:50)
[2024-01-21] MEDS: PHENAZOPYRIDINE 100 MG TABLET 200 MG PO (09:56)
--- NOTE | 2024-01-21 10:32 | PC.NURSE ---
Pt is A&Ox4, VSS, afebrile on RA. She is able to ambulate independently in the room. Incisions C/D/I JUSTOWRITER OPERATOR. She is evaluated by MD Dixon this a.m. and verbalizes understanding of home medications, new medications, as well as site care and to call provider with worsening symptoms. She acknowledges to follow up with MD Dixon in x2 weeks. RN escorts her via w/ch to private vehicle with for discharge home at 1010 this a.m. with all of her personal belongings.
--- NOTE | 2024-01-21 10:41 | CM.DANOTE ---
Brief DCP Assessment Note Pt is a 48yo F here under the care of Dr. Dixon for pain/n/v/dizziness. Pt had laparoscopy last week with ureternal stents. PCP Reji Shea and self pay SIMULATION ENGINEER reviewed EMR. Per chart, pt lives indep with spouse in [place]. Per chart, pt discharged home with family support now that pt pain was better controlled. Pt left prior to being seen by this SIMULATION ENGINEER. P: home today with family support and OP f/u recommended. No identified barriers to safe dc home at this time. CM team will follow as needed DANN Ortiz Discharge Planning/Care Management CM Discharge Assessment Start: 01/21/24 10:41 Freq: Status: Active Protocol: Document 01/21/24 10:41 (Rec: 01/21/24 10:41 [id number]) Discharge Planning Assessment Assigned Biofuels Manager DANN Watson DPOA/Assigned Designee Name binu Rascon Contact Information [phone] Advance Directives? No History Provided By Patient,Medical Record Prior Living Arrangements House Household Members spouse Type of transporation used prior to Drives own vehicle admit Independent with ADL's Yes Is patient alert and oriented? Yes Barriers to Discharge No Discharge Plan Home Referrals Initiated None needed Whiteboard Updated in Patient Room with No name and ext. # of Biofuels Manager Review Status In Process Please Provide Date Initial DC 01/21/24 Assessment Was Performed Next Review Type Continued Stay Review
== END 2024-01-21 10:10 | disposition home or self-care (01) ==
LOC: ED 10:09 → AC 12:29
PROVIDERS: Admitting Provider Obstetrics & Gynecology; Emergency Provider Emergency Medicine; PCP Family Medicine; Referring Provider Emergency Medicine; Visit Provider Obstetrics & Gynecology
DX: R11.2 Nausea with vomiting, unspecified (principal); G89.18 Other acute postprocedural pain; R42 Dizziness and giddiness
CPT/HCPCS: 36415; 80053; 85025; 96365; 96367; 96375; 99284; G0378; J0690; J2270; J2405

== ENCOUNTER → 2024-02-09 10:28 | Outpatient (CLI) | payer OTHER, SELFPAY ==
[2024-01-20 15:47] VITALS: BMI 28.8
[2024-02-09 12:33] LABS: Appearance Urine UA CLEAR; Bilirubin Urine UA NEGATIVE (NEGATIVE); Color Urine UA YELLOW; Glucose Urine UA NEGATIVE (Negative); Ketones Urine UA NEGATIVE (NEGATIVE); Leukocyte Esterase Urine UA TRACE (NEGATIVE); Nitrite Urine UA NEGATIVE (Negative); Occult Blood Urine UA NEGATIVE (Negative); Protein Urine UA NEGATIVE (Negative); Urobilinogen Urine UA 0.2 E.U./dL (0.2)
[2024-02-09 13:33] LABS: Bacteria Urine None Seen; Culture Indicated Urine Cult Not Indicated; RBC Urine 1-5/HPF (0-5/HPF); Urine Volume N; WBC Urine None Seen (0-5/HPF)
[2024-02-09 13:52] LABS: Squamous Epithelial Cell Urine None Seen (0-5/HPF)
== END ==
LOC: LAB 10:29
PROVIDERS: PCP Family Medicine; Referring Provider Obstetrics & Gynecology; Visit Provider Obstetrics & Gynecology
DX: R30.0 Dysuria (principal)
CPT/HCPCS: 81001

== ENCOUNTER → 2024-02-12 11:43 | Outpatient (CLI) | payer OTHER, SELFPAY ==
[2024-01-20 15:47] VITALS: BMI 28.8
== END ==
LOC: LAB 11:44
PROVIDERS: PCP Family Medicine; Referring Provider Obstetrics & Gynecology; Visit Provider Obstetrics & Gynecology
DX: R30.0 Dysuria (principal)
CPT/HCPCS: 87086

== ENCOUNTER → 2024-07-19 | Outpatient (CLI) | payer OTHER, SELFPAY ==
[2024-01-20 15:47] VITALS: BMI 28.8
--- NOTE | 2024-07-19 15:44 | DI.US.S_ITS ---
PROCEDURE: US PELVIC COMPLETE INDICATIONS: RIGHT PELVIC PAIN. POST UTERUS AND CERVIX SURGICAL REMOVAL. TECHNIQUE: Real-time scanning was performed of the pelvic organs, with image documentation. Additional endovaginal scanning was necessary due to incomplete visualization of the adnexal and endometrial structures by transabdominal scanning. COMPARISON: [facility], US, US PELVIC COMPLETE, 02/05/2021, 10:33. [facility], CT, CT ABDOMEN PELVIS W CON, 01/19/2024, 14:27. FINDINGS: Uterus: Absent. Ovaries: The right ovary measures 2.7 x 1.6 x 1.6 cm, with a calculated ovarian volume of 3.7 cc. The left ovary measures 2.4 x 1.2 x 1.1 cm, with a calculated ovarian volume of 1.2 cc. The ovaries have a normal sonographic appearance. Less than 12 follicles can be seen in each ovary. No adnexal masses are seen. Other: No pathologic free abdominal or pelvic fluid. Arterial and venous flow is identified bilaterally. IMPRESSION: Unremarkable exam. We strive to produce accurate, complete, and clear reports of imaging services. To assist us in improving patient care, this report was composed using standard report templates and voice recognition software. Therefore, it may contain abnormal punctuation, insertions and/or omissions. Occasional wrong-word or sound-alike substitutions may occur. Though we review the report and make efforts to correct it, we do recommend that the report be read carefully in proper context to recognize any text inaccuracies. Dictated by: Dari Coats M.D. on 07/20/2024 at 21:21 Transcribed by: DAVID on 07/20/2024 at 21:22 Approved by: Dari Coats M.D. on 07/28/2024 at 14:41
== END ==
LOC: US 15:44
PROVIDERS: PCP Family Medicine; Referring Provider Obstetrics & Gynecology; Visit Provider Obstetrics & Gynecology
DX: R10.2 Pelvic and perineal pain (principal); Z90.710 Acquired absence of both cervix and uterus
CPT/HCPCS: 76830; 76856; 93975